=== PATIENT | female | born 1965 | race Caucasian/White ===

== ENCOUNTER 2019-01-02 01:59 | Inpatient (IN) | payer BC ==
[~2019-01-02] VITALS: Ht 162.6 cm; Wt 40.1 kg
[2019-01-02 02:02] VITALS: Ht 162.6 cm; Wt 40.1 kg
--- NOTE | 2019-01-02 02:16 | NUR ---
PT BIB MOTHER AND STEP FATHER FOR ABD PAIN/N/V. PT STATES THAT SHE VOMITTED 1 WHEN SHE ARRIVED AND HAS BEEN NAUSEOUS SINCE YESTERDAY. PT HAD A BOWEL OBSTRUCTION SURGICALLY REPAIRED LAST WEEK ON THE WITH JAKOB STILL IN CENTER OF ABDOMEN IN SUPRAPUBIC AREA. WOUND IS CLEAN DRY AND INTACT WITH NO EVIDENCE OF INFECTION OR DIHISISCENCE. PT STATES PAIN IS A 9/10 AND STATES THE PAIN IS BURNING IN THE EPIGASTRIC AREA "UNDERNEATH MY CHEST". PT ALSO HAD BOWEL REMOVED FROM NECROTIC TISSUE WELL DURING THAT SURGERY. PT HAS HX OF COLORECTAL CANCER 6 YEARS AGO, KIDNEY STONES, BOWEL OBSTRUCTION, AND ONE PRIOR UNKNOWN PELVIS SURGERY. PT CONNECTED TO LICENSED CLUB MANAGER AND PLEHT OX. VSS. SKIN IS COOL, DRY AND INTACT. PT IS AXO X4. PT SPEAKING IN CLEAR AND FULL SENTENCES. PT HAS EQUAL AND UNLABORED CHEST RISE. NAD AT THIS TIME. WILL CONTINUE TO MONITOR. AWAITING MSE
--- NOTE | 2019-01-02 02:26 | NUR ---
MD CARBALLO AT BEDSIDE FOR MSE
--- NOTE | 2019-01-02 02:47 | NUR ---
PT TAKEN TO CT
--- NOTE | 2019-01-02 02:57 | NUR ---
PT RETURNED FROM RADIOLOGY AND STATES A RELIEF FROM PAIN AND NAUSEA
[2019-01-02 03:01] LABS: BASOPHIL % 0.2 % (0-2); RED CELL DISTRIBUTION WIDTH 14.4 % (11.5-14.5)
[2019-01-02 03:04] LABS: PLATELET COUNT 481 x10^3mcL (130-400)
[2019-01-02 03:16] LABS: CALCIUM 9.5 mg/dL (8.5-10.1); CARBON DIOXIDE 28.1 mmol/L (21-32); CHLORIDE SERUM 103 mmol/L (98-107); CREATININE SERUM 0.8 mg/dL (0.6-1.0); GFR1 > 60 mL/min; GLUCOSE SERUM 123 mg/dL (74-106); POTASSIUM SERUM 3.4 mmol/L (3.5-5.1); SODIUM SERUM 142 mmol/L (136-145)
[2019-01-02 03:21] LABS: ALKALINE PHOSPHATASE 73 U/L (46-116); ALT/SGPT 21 U/L (14-59); AST/SGOT 14 U/L (15-37); BILIRUBIN TOTAL 0.23 mg/dL (0.20-1.00); LIPASE 107 IU/L (73-393); TOTAL PROTEIN, SERUM 6.8 g/dL (6.4-8.2)
[2019-01-02] MEDS ORDERED: FOLBIC RF1 TAB PO (03:59)
[2019-01-02] MEDS ORDERED: ZOF4 PO (03:59)
[2019-01-02] MEDS ORDERED: MULTI-VITAMINS1 TAB PO (04:00)
[2019-01-02] MEDS ORDERED: GAS-X EXTRA ST125 M1 PO (04:00)
[2019-01-02] MEDS ORDERED: FLA500 PO (04:01)
--- NOTE | 2019-01-02 04:22 | NUR ---
X RAY AT BEDSIDE
--- NOTE | 2019-01-02 04:40 | NUR ---
REPORT CALLED TO CRISTIANA COOPER
--- NOTE | 2019-01-02 04:43 | NUR ---
PHOTO OF WOUND TAKEN AND PLACED IN CHART
--- NOTE | 2019-01-02 04:55 | NUR ---
RECEIVED PT FROM ED. PT AOX4. DENIES ZAVALA/DIZZINESS. TELE #[id number], NSR. DENIES CP/PRESSURE. DENIES SOB/DIFFICULTY BREATHING, ON RA. SURGICAL INCISION ON SUPRAPUBIC AREA WITH JAKOB, JOSE CDI. IV TO LAC, INTACT AND PATENT. BED IN LOWEST POSITION. CALL LIGHT WITHIN REACH. WILL CONTINUE TO MONITOR.
[2019-01-02 05:04] LABS: CHOLESTEROL/HDL RATIO 2.1; MAGNESIUM 1.3 mg/dL (1.8-2.4); PHOSPHOROUS 2.9 mg/dL (2.5-4.9)
[2019-01-02 05:11] VITALS: BP 112/70
[2019-01-02 05:13] LABS: T3 TOTAL 1.06 ng/mL
--- NOTE | 2019-01-02 05:14 | NUR ---
PT STABLE UPON TRANSPORT TO TELE UNIT WHERE CARE OF PT WAS RESUMED BY CRISTIANA COOPER. PT TAKEN VIA GURNEY BY LORRIE RAMSEY AND Rolando LOUIE SENT WITH PT.
--- NOTE | 2019-01-02 07:57 | NUR ---
RECEIVED REPORT ON PATIENT AT THIS TIME. PATIENT RESTING COMFORTABLY IN BED. NO APPARENT DISTRESS OR DISCOMFORT NOTED. BREATHING EVEN AND UNLABORED. NO RESPIRATORY DISTRESS OR DISCOMFORT NOTED. IV PATENT AND INTACT. ALL QUESTIONS AND CONCERNS ADDRESSED. ALL NEEDS ATTENDED TO. GETTING READY TO GO DOWNSTAIRS FOR SMALL BOWEL FOLLOW THROUGH. WILL CONTINUE TO MONITOR
--- NOTE | 2019-01-02 08:15 | NUR ---
PATIENT DOWN FOR SMALL BOWEL FOLLOW THROUGH AT THIS TIME. TELE MONITOR REMOVED AND GRADER TENDER AWARE. ALL NEEDS ATTENDED TO
[2019-01-02 09:39] VITALS: BP 89/53
[2019-01-02 10:19] LABS: microscopic required? NO
--- NOTE | 2019-01-02 10:30 | NUR ---
ALL MORNING MEDICATIONS ADMINISTERED AT THIS TIME. PATIENT TOLERATED WELL. NO APPARENT DISTRESS OR DISCOMFORT NOTED. NO ADVERSE EFFECTS NOTED. ALL NEEDS ATTENDED TO. WILL CONTINUE TO MONITOR
[2019-01-02 10:43] LABS: AMPHETAMINE QUAL UR NONE DETECTED (See below)
[2019-01-02 10:48] LABS: UA SPECIFIC GRAVITY 1.025 (1.005-1.035); urine erythrocyte NEGATIVE (NEGATIVE)
[2019-01-02 13:11] VITALS: BP 97/56
--- NOTE | 2019-01-02 15:24 | NUR ---
PROVIDED SNACKS TO PATIENT AT THIS TIME. NO APPARENT DISTRESS OR DISCOMFORT NOTED. ALL NEEDS ATTENDED TO.
[2019-01-02 16:29] VITALS: BP 91/57
--- NOTE | 2019-01-02 16:48 | NUR ---
PER PATIENT REQUEST, SHE WOULD LIKE SURGICAL JAKOB TO BE REMOVED TOMORROW. SPOKE TO DR NIETO AT THIS TIME REPORTING PATIENTS REQUEST. PER DR FERRIS, OKAY TO REMOVE JAKOB TOMORROW 01/03. ALL QUESTIONS AND CONCERNS ADDRESSED. ALL NEEDS ATTENDED TO. WILL CONTIUE TO MONITOR
[2019-01-02 17:29] LABS: FREE T4 1.21 ng/dL (0.76-1.46); T4(THYROXINE) 7.8 ug/dL (4.7-13.3)
--- NOTE | 2019-01-02 18:38 | NUR ---
PATIENT RESTING COMFORTABLY IN BED AT THIS TIME. NO APPARENT DISTRESS OR DISCOMFORT NOTED. IV PATENT AND INTACT. ALL QUESTIONS AND CONCERNS ADDRESSED. ALL NEEDS ATTENDED TO. SAFETY PRECAUTIONS MAINTAINED. WILL ENDORSE ALL CARE TO RN INTAKE NURSE
[2019-01-02 19:20] VITALS: BP 91/54
--- NOTE | 2019-01-02 19:20 | NUR ---
RECEIVED PT IN BED COMFORTABLY RESTING NO ACUTE RESPIRATORY DISTRESS NOTED. DENIES ANY PAIN AT THIS TIME. IV SITE PATENT AND INTACT. BED IN LOWEST PSOITION,CALL LIGHT WITHIN REACH. WILL CONTINUE TO MONITOR.
--- NOTE | 2019-01-03 05:23 | NUR ---
PT APPEARS TO BE SLEEPING. NO SOB NOTED. NO S/S OF PAIN OR ANY DISCOMFORT.BED IN LOWEST POSITION,CALL LIGHT WITHIN REACH. WILL CONTINUE TO MONITOR.
[2019-01-03 06:02] VITALS: BP 120/74
[2019-01-03 07:04] LABS: BASOPHIL % 0.8 % (0-2); PLATELET COUNT 487 x10^3mcL (130-400); RED CELL DISTRIBUTION WIDTH 14.6 % (11.5-14.5)
--- NOTE | 2019-01-03 07:23 | NUR ---
CARE ENDORSED TO DAY NURSE VIVIAN.
[2019-01-03 07:38] LABS: CALCIUM 9.5 mg/dL (8.5-10.1); CARBON DIOXIDE 28.6 mmol/L (21-32); CHLORIDE SERUM 103 mmol/L (98-107); CREATININE SERUM 0.8 mg/dL (0.6-1.0); GFR1 > 60 mL/min; GLUCOSE SERUM 94 mg/dL (74-106); MAGNESIUM 1.8 mg/dL (1.8-2.4); PHOSPHOROUS 3.7 mg/dL (2.5-4.9); SODIUM SERUM 132 mmol/L (136-145)
--- NOTE | 2019-01-03 07:50 | NUR ---
RC'D PT RESTING IN BED WITH NO APPARENT SIGNS OF DISTRESS. A/A/OX4, SPEECH CLEAR AND APPROOPRIATE. DENIES ZAVALA/DIZZINESS. ON TELE, DENIES CHEST PAIN/PRESSURE. PALP PULSES, NO EDEMA NTOED. RESPIRATIONS EQUAL AND UNLABORED. LUNGS CTA. ON RA, DENIES SOB. ABDOMEN SOFT AND NONTENDER AT THIS TIME. ACTIVE BS. DENIES N/V. PT CURRENTLY NPO AT THIS TIME. VOIDS FREELY. AMBULATORY. ABDOMINAL JAKOB WNL, COUNCIL MEMBER. PT DENIES PAIN AT THIS TIME. IV PATENT AND INTACT. BED IN LOW POSITION. CALL LIGHT IN REACH. WILL CONTINUE TO MONITOR
--- NOTE | 2019-01-03 08:32 | NUR ---
PT NPO AT THIS TIME, AM MEDICATIONS HELD AT THIS TIME. RESPIRATIONS EQUAL AND UNLABORED. ON RA, DENIES SOB. PT DENIES EXCESSIVE PAIN AT THIS TIME. BED IN LOW POSITION. CALL LIGHT IN REACH. WILL CONTINUE TO MONITOR
[2019-01-03 09:08] VITALS: BP 97/57
--- NOTE | 2019-01-03 09:54 | NUR ---
REPORT CALLED AND GIVEN TO GI NYA LEONG AT THIS TIME. ALL QUESTIONS AND CONCERNS ADDRESSED
--- NOTE | 2019-01-03 10:04 | NUR ---
PT TO BE TAKEN DOWN TO GI LAB AT THIS TIME. TELE NOTIFIED AND MADE AWARE
--- NOTE | 2019-01-03 10:59 | NUR ---
RC'D REPORT FROM GI LAB. EGD COMPLETE AT THIS TIME, DX GASTRITIS, COTEST PENDING. VITALS STABLE. PT TO ARRIVE ON FLOOR SHORTLY.
--- NOTE | 2019-01-03 12:30 | NUR ---
PT RESTING IN BED WITH NO APPARENT SIGNS OF DISTRESS. RESPRIATIONS EQUAL AND UNLABORED. ON RA, DENIES SOB. PT DENIES EXCESSIVE PAIN AT THIS TIME. BED IN LOW PSOITION. CALL LIGHT IN REACH. WILL CONTINUE TO MONITOR
[2019-01-03 12:32] VITALS: BP 99/60
--- NOTE | 2019-01-03 13:08 | NUR ---
PT REQEUSTING IMMODIUM AT THIS TIME, GIVEN AM DOSE SINCE PT WAS NPO THIS AM FOR EGD.
--- NOTE | 2019-01-03 13:18 | NUR ---
Initial Nutrition Assessment- Dx: Abdominal Pain, Bowel Obstruction PMHx: colorectal cancer, SBO, chronic kidney stones PSHx: s/p resection of cancer 6yrs prior with ileostomy repair 5 years, s/p resection of SBO 2 weeks Labs: Na 132L, AST 14L, ALP 73H, RBC 3.39L, H/H 10.5L/31L Meds: Imodium, Miralax, Mylanta, Pepcid, Protonix, Zofran Diet: Full liqui diet (was on NPO earlier today, S/P EGD) PO Intake: no record yet Ht: 5'4 Wt: 118 lb, 54 kg BMI: 20 kg/m2 (Normal) IBW: 120 lb, 55 kg %IBW: 74 UBW: 120 lb Age: 53 yrs old/Female Food Allergies: NKFA Skin: surgical incision on suprapubic area w/ letty. Jimenez: 21 Edema: none GI: abd is soft and non-distended w/ active bowel sounds. Last BM 01/02/19, loose. Per H&P, pt had recent SBO s/p resection 2 weeks prior who presented to the ED c/o acute-onset worsening abdominal pain with associated nausea and vomiting x1 day. Pt seen sleeping in bed, just arrived back from EGD, w/ lunch tray at bedside for Full liquid diet. Pt arousable w/ verbal stimuli. Pt reported her UBW and stated that she might have lost some weight as she's been experiencing poor PO intake for 2 weeks now. Pt also reported that she eats small but frequent meals at home. Pt denied any loose bowel movements since yesterday. Trigger received for score of 2, not specified Problem with: N: N V: N D: Y C: N Problems with: Chewing: N Swallowing: N Current appetite: Fair Recent wt change: wt loss, 2 lb %wt change: 1.6, unknown timeframe Vitamin/Supplement use: VIT B12, Folic acid, MVI Special diet at home: none Physical activity: none Education: Pt notified of full liquid diet and given a description of restrictions. Further education is not appropriate at this time. Estimated Nutritional Needs Based on actual body weight 54 kg Energy: 2437-5457 kcal/d (25-30 kcal/kg-for maintenance) Protein: 54-81 g/d (1-1.5 g/kg for Cancer) Fluid: 2391-4579 ml/d (1 ml/kcal-fluid balance) or per doctor Nutrition Diagnosis 1. Altered GI function r/t chronic illness AEB abd pain, N/V and diarrhea. 2. Increased risk for malnutrition r/t chronic illness AEB pt's report of poor PO intake x 2 weeks. Intervention 1. Continue Full Liquid diet per MD orders. 2 Recommend adding MVI QD and Banatrol TID pt continues to experience loose stools. 3 If/when medically appropriate, advance diet to Soft diet w/ Ensure Enlive BID. Monitor/Evaluate Goal: PO intake at least 75% of estimated needs Monitor: PO intake, Labs, GI function F/U in 2-3 days as high risk 01/05-01/06
--- NOTE | 2019-01-03 15:13 | NUR ---
PT PREMEDICATED WITH NORCO FOR STAPLE REMOVAL AT THIS TIME. VITALS STABLE.
--- NOTE | 2019-01-03 16:00 | NUR ---
JAKOB REMOVED AT THIS TIME. PT TOLERATED WELL. VITALS STABLE. ABDOMEN NONTENDER AT THIS TIME. SKIN WARM AND DRY. PT EDUCATED ON SAFETY. PT VERBALIZED UNDERSTANDNING OF INSTRUCTIONS.
[2019-01-03 17:19] VITALS: BP 103/70
--- NOTE | 2019-01-03 18:38 | NUR ---
PT RESTING IN BED WITH NO APPARENT SIGNS OF DISTRESS. MEDSURG. DENIES CHEST PAIN/PRESSURE. RESPIRAITONS EQUAL AND UNLABORED. ON RA, DENIES SOB. PT DENIES ABDOMINAL PAIN AT THIS TIME. VOIDS FREELY. AMBULATORY. ABDOMINAL INCISION, CDI. JAKOB REMOVED EARLIER TODAY, PT TOLERATED WELL. IV PATENT AND INTACT. BED IN LOW POSITION. CALL LIGHT IN REACH. WILL ENDORSE TO GEOGRAPHIC INFORMATION SYSTEMS MANAGER RN
--- NOTE | 2019-01-03 19:10 | NUR ---
RECEIVED PT IN BED COMFORTABLY RESTING.NO SOB NOTED.NO C/O PAIN AT THIS TIME.IV SITE PATENT AND INTACT. BED IN LOWEST POSITION,CALL LIGHT WITHIN REACH. WILL CONTINUE TO MONITOR.
[2019-01-03 19:20] VITALS: BP 126/69
--- NOTE | 2019-01-03 20:39 | NUR ---
PT C/O NAUSEA.MEDICATED ZOFRAN 4MG IV ORDERED. WILL CONTINUE TO MONITOR.
[2019-01-03 21:02] VITALS: BP 105/66
--- NOTE | 2019-01-04 05:06 | NUR ---
PT REMAINED ASLEEP.NO SOB NOTED.DENIES PAIN AT THIS TIME.BED IN LOWEST POSITION,CALL LIGHT WITHIN REACH. WILL CONTINUE TO MONITOR.
[2019-01-04 05:44] VITALS: BP 91/55
[2019-01-04 06:20] LABS: BASOPHIL % 0.4 % (0-2); RED CELL DISTRIBUTION WIDTH 14.4 % (11.5-14.5)
[2019-01-04 06:21] LABS: CALCIUM 9.8 mg/dL (8.5-10.1); CARBON DIOXIDE 28.5 mmol/L (21-32); CHLORIDE SERUM 106 mmol/L (98-107); CREATININE SERUM 0.7 mg/dL (0.6-1.0); GFR1 > 60 mL/min; GLUCOSE SERUM 99 mg/dL (74-106); POTASSIUM SERUM 3.8 mmol/L (3.5-5.1); SODIUM SERUM 143 mmol/L (136-145)
--- NOTE | 2019-01-04 07:19 | NUR ---
SEEN IN BED AAOX4. NO RESP DISTRESS NOTED ON ROOM AIR. NO RESP DISTRESS NOTED. DENIES ABDN PAIN. ON REGULAR DIET. ASKED FOR PRILOSEC STATED FOR GASTRITIS. IVF NS TO LFA INFUSING WELL AT 50ML/HR. PLAN OF CARE DISCUSSED. CALL LIGHT PLACED WITHIN EASY REACH. SIDERAILS UP X2.
--- NOTE | 2019-01-04 07:20 | NUR ---
DOCTOR ALEXIS NOTIFIED, NOTED NEW ORDER FOR PRILOSEC.
[2019-01-04 07:22] LABS: PLATELET COUNT 503 x10^3mcL (130-400)
--- NOTE | 2019-01-04 07:25 | NUR ---
CARE ENDORSED TO DAY NURSE SUPIN.
[2019-01-04 08:16] VITALS: BP 94/59
[2019-01-04] MEDS ORDERED: PROTONIX20 MG PO (10:48)
[2019-01-04 11:13] VITALS: BP 94/59
--- NOTE | 2019-01-04 13:38 | NUR ---
DISCHARGE INSTRUCTION/PRESCRIPTION EXPLAINED AND GIVEN TO PATIENT WHO IS AWAKE, ALERT, ORIENTED X4. PATIENT VERBALIZED UNDERSTANDING. S/L TO LAC REMOVED WITH CATHETER INTACT, DRSG APPLIED. PERSONAL BELONGINGS CHECKED AND KEPT WITH PATIENT. BROUGHT VIA WC BY DRAWER IN PLAIN LOOM TO LOBBY PICKED UP BY HER FAMILY. CONDITION STABLE UPON DISCHARGE.
== END 2019-01-04 13:40 | disposition home or self-care (01) | DRG 392 ==
LOC: ED 01:59 → MU 03:59 → DU 03:59 → MU 01-03 18:21
PROVIDERS: Emergency Medicine; General Practice; Internal Medicine Gastroenterology; ADMIT Internal Medicine
PROC: 0DB68ZX Excision of Stomach, Via Natural or Artificial Opening Endoscopic, Diagnostic (ICD-10-PCS; principal; 2019-01-03 10:00)
DX: K29.70 Gastritis, unspecified, without bleeding (principal); K56.7 Ileus, unspecified; K56.609 Unspecified intestinal obstruction, unspecified as to partial versus complete obstruction; E83.42 Hypomagnesemia; E87.6 Hypokalemia; D64.9 Anemia, unspecified; Z85.030 Personal history of malignant carcinoid tumor of large intestine; N18.9 Chronic kidney disease, unspecified; F41.9 Anxiety disorder, unspecified
CPT/HCPCS: 43235; 83880; 84439; A9698; J1200; J1610; J2250; J2270; J2310; J2405; J2550; J3010; J3475; J3490; J7030; Q0092; Q9967